=== PATIENT | male | born 1990 | race Caucasian/White ===

== ENCOUNTER 2019-10-03 13:01 | Inpatient (IN) | payer MEDICAID ==
[~2019-10-03] VITALS: Ht 167.6 cm; Wt 81.6 kg
[2019-10-03] MEDS ORDERED: SODIUM CHLORIDE 0.9% 1,000 ML IV ONE (13:29)
[2019-10-03] MEDS ORDERED: KETOROLAC 30MG/ML VIAL IV STA (13:29)
[2019-10-03 14:21] LABS: BASOPHILS % 0.3 % (0.0-2.0); EOSINOPHILS % 0.7 % (0.0-5.0); HEMOGLOBIN. 15.9 g/dL (14.0-18.0); LYMPHOCYTES % 29.7 % (20.0-50.0); MEAN CORPUSCULAR HEMOGLOBIN 30.8 pg (28.0-32.0); MEAN CORPUSCULAR VOLUME 90.9 fL (80.0-94.0); MEAN PLATELET VOLUME 9.4 fl (7.4-10.4); MONOCYTES % 8.2 % (2.0-8.0); NEUTROPHILS % 61.1 % (40.0-76.0); PLATELET 222 x1000/uL (130-400); RED BLOOD CELL COUNT 5.17 mill/uL (4.7-6.1); RED CELL DISTRIBUTION WIDTH 13.4 % (11.6-14.6)
[2019-10-03 14:29] LABS: CHLORIDE 108 mEq/L (98-107)
[2019-10-03] MEDS ORDERED: ASPIRIN 81MG TABLET PO ONE (15:45)
[2019-10-03] MEDS ORDERED: ACETAMINOPHEN 325MG TABLET PO PRN (17:00)
[2019-10-03] MEDS ORDERED: ONDANSETRON HCL 4MG/2ML INJ IV PRN (17:00)
[2019-10-03 17:13] LABS: *BARBITURATES SCREEN URINE NEGATIVE (NEGATIVE); *BENZODIAZEPINES SCREEN URINE NEGATIVE (NEGATIVE); *COCAINE SCREEN URINE PRESUMTIVE POSITIVE (NEGATIVE)
[2019-10-03 17:14] LABS: *AMPHETAMINES SCREEN URINE NEGATIVE (NEGATIVE); CANNABINOID URINE SCREEN NEGATIVE (NEGATIVE); METHADONE URINE SCREEN NEGATIVE (NEGATIVE); OPIATES URINE SCREEN NEGATIVE (NEGATIVE); PHENCYCLIDINE URINE SCREEN NEGATIVE (NEGATIVE)
[2019-10-03] MEDS ORDERED: IOHEXOL-350 100 ML BOTTLE ONE (17:29)
[2019-10-03] MEDS ORDERED: METOPROLOL TARTRATE 25MG TABLET PO NR (21:15)
[2019-10-04 01:00] VITALS: BP 110/75
[2019-10-04] MEDS ORDERED: LORA-250 PO (01:47)
[2019-10-04 04:00] VITALS: BP 108/69
[2019-10-04 08:19] VITALS: BP 90/51
[2019-10-04] MEDS ORDERED: ENOXAPARIN 40MG/0.4ML SYR SUBCUT SCH (09:00)
[2019-10-04] MEDS ORDERED: ASPIRIN 81MG EC TABLET PO SCH (09:00)
[2019-10-04] MEDS ORDERED: METOPROLOL TARTRATE 25MG TABLET PO SCH (09:00)
[2019-10-04 12:01] VITALS: BP 106/58
[2019-10-04 13:53] VITALS: BP 106/56
== END 2019-10-04 15:15 | disposition home or self-care (01) | DRG 816 ==
LOC: ER 13:20 → 6WST 15:43 → ENRESERV 22:48
PROVIDERS: ADMIT Internal Medicine; ATTEND Internal Medicine
DX: T40.5X1A Poisoning by cocaine, accidental (unintentional), initial encounter (principal); E87.8 Other disorders of electrolyte and fluid balance, not elsewhere classified; I73.9 Peripheral vascular disease, unspecified; I10 Essential (primary) hypertension; F41.9 Anxiety disorder, unspecified; R42 Dizziness and giddiness; R55 Syncope and collapse; R74.0 Nonspecific elevation of levels of transaminase and lactic acid dehydrogenase [LDH]; E78.5 Hyperlipidemia, unspecified; F14.90 Cocaine use, unspecified, uncomplicated; F12.90 Cannabis use, unspecified, uncomplicated; Z87.891 Personal history of nicotine dependence; Z71.51 Drug abuse counseling and surveillance of drug abuser; Y92.89 Other specified places as the place of occurrence of the external cause
CPT/HCPCS: 36415; 71045; 71275; 80053; 80061; 80305; 83880; 84443; 84484; 85025; 93005; 93306; 99285; J1650; J1885; J7030; Q9967